=== PATIENT | female | born 1955 | race Caucasian/White ===

== ENCOUNTER 2017-04-27 08:42 | Day surgery (SDC) | payer BC ==
[~2017-04-27] VITALS: Ht 167.6 cm; Wt 109.0 kg
[2017-04-27] MEDS ORDERED: LATANOPROST2.5 ML BOTH EYES (10:17)
[2017-04-27] MEDS ORDERED: ALPRAZOLAM0.5 MG PO (10:18)
[2017-04-27] MEDS ORDERED: DIOVAN160 MG PO (10:18)
[2017-04-27] MEDS ORDERED: PRED FORTE100 DROP/5 BOTH EYES (10:19)
[2017-04-27 10:36] VITALS: BP 121/82
[2017-04-27 13:30] VITALS: BP 117/80
[2017-04-27 14:04] VITALS: BP 122/65
== END 2017-04-27 14:15 | disposition home or self-care (01) ==
LOC: SDC 08:42
DX: H35.341 Macular cyst, hole, or pseudohole, right eye (principal); H35.371 Puckering of macula, right eye; H33.311 Horseshoe tear of retina without detachment, right eye; I10 Essential (primary) hypertension; Z79.82 Long term (current) use of aspirin; Z82.3 Family history of stroke; Z80.0 Family history of malignant neoplasm of digestive organs
CPT/HCPCS: J0690; J1100; J2250; J2405; J3300